=== PATIENT | male | born 1950 | race Caucasian/White ===

== ENCOUNTER → 2016-08-21 | Outpatient (CLI) | payer OTHER ==
[~2016-08-21] MED LIST: ALTACE 10MG TAB10 MG PO; ALTACE10 MG PO; AMIPRIL; ASPIRIN 81M81 MG/TA2 PO; ASPRIN; CEPHALEXIN500 M1 PO; COREG12.5 MG PO; COREG25 MG PO; COUMADIN3 MG PO; DEMADEX 20MG20 MG PO; DEMADEX20 MG PO; DIOVAN 40MG40 MG PO; DUO-KAPS1 CAP PO; FE-TABS325 MG PO; FOLIC ACID 40400 MCG PO; GLUCOSAMINE COM1 TA1 PO; HYDROCODONE/IBU1 TA1 PO; LEVAQUIN 5500 MG/TA1 PO; LORTAB 5/500 501 TAB PO; MUCINEX DM 30 M1 TE1 PO; NAPROSYN250 MG PO; NASONEX SPRAY17 GM NS; OMEGA-3 FISH1200 MG PO; RHINOCORT AQUA8.6 GM NS; RHINOCORT0.032 MG/2 NS; SIMCOR 1000 MG-1 TE1 PO; THERAGRAN1 TA1 PO; VALTREX1 GM PO; VITAMIN C PO; VITAMIN D2000 I1 PO; XYAL5 MG PO; XYZAL5 MG PO; [UNRECOGNIZED DRUG - OTHER] TOP
[2016-08-21 10:29] LABS: HEMOGLOBIN 13.1 g/dl (13.5-18.0); MEAN CELL VOLUME 88 fl (80.0-100.0); MEAN CORPUSCULAR HEMOGLOBIN 30 pg (27.0-31.0); MEAN CORPUSCULAR HGB CONC 34 g/dl (33.0-37.0); MEAN PLATELET VOLUME 11.5 fl (7.4-10.4); PLATELET COUNT 103 K/mm3 (130-400); RED BLOOD COUNT 4.41 M/mm3 (4.20-5.60); REDCELL DISTRIBUTION WIDTH-CV 13.4 % (11.5-14.5); WHITE BLOOD COUNT 2.1 K/mm3 (4.8-10.8)
[2016-08-21 11:10] LABS: ERYTHROCYTE SEDIMENTATION RATE 76 mm/hr (0-30)
== END ==
LOC: COL.LAB 09:12
PROVIDERS: Orthopaedic Surgery
DX: M25.561 Pain in right knee (principal)

== ENCOUNTER → 2017-01-22 | Outpatient (CLI) | payer OTHER | LOC: COL.RAD 13:07 | DX: M18.11 Unilateral primary osteoarthritis of first carpometacarpal joint, right hand (principal); S96.811A Strain of other specified muscles and tendons at ankle and foot level, right foot, initial encounter; X58.XXXA Exposure to other specified factors, initial encounter; M47.817 Spondylosis without myelopathy or radiculopathy, lumbosacral region; M48.07 Spinal stenosis, lumbosacral region | CPT/HCPCS: J3301; Q9967 ==

== ENCOUNTER → 2017-06-29 | Outpatient (CLI) | payer OTHER | LOC: COL.RAD 09:20 | DX: D61.818 Other pancytopenia (principal) ==

== ENCOUNTER → 2017-09-14 | Outpatient (CLI) | payer OTHER | LOC: COL.RAD 09-09 10:30 | DX: M47.817 Spondylosis without myelopathy or radiculopathy, lumbosacral region (principal); M48.07 Spinal stenosis, lumbosacral region; M99.83 Other biomechanical lesions of lumbar region ==

== ENCOUNTER → 2017-10-20 | Outpatient (CLI) | payer OTHER | LOC: COL.RAD 10:00 | DX: N50.89 Other specified disorders of the male genital organs (principal); N43.2 Other hydrocele ==

== ENCOUNTER → 2019-02-27 | Outpatient (CLI) | payer MEDICARE | LOC: COL.PUL 09:49 | DX: R05 Cough (principal); R06.02 Shortness of breath ==

== ENCOUNTER 2019-03-09 12:37 | Emergency (ER) | payer MEDICARE ==
[~2019-03-09] VITALS: Ht 190.5 cm; Wt 155.9 kg
[2019-03-09 12:41] VITALS: TEMP 97.7
[2019-03-09] MEDS ORDERED: VOLTAREN GEL 1%1 TU TOP (12:54)
[2019-03-09] MEDS ORDERED: NORVASC 5MG5 MG/TAB PO (12:56)
[2019-03-09] MEDS ORDERED: COZAAR100 MG PO (12:57)
[2019-03-09] MEDS ORDERED: COREG 25MG25 MG/TAB PO (12:57)
[2019-03-09] MEDS ORDERED: PREDNISONE10 MG PO (13:08)
[2019-03-09] MEDS ORDERED: ZOVIRAX800 MG PO (13:08)
[2019-03-09 13:36] VITALS: BP 121/70; PULSE 51
== END 2019-03-09 13:35 | disposition home or self-care (01) ==
LOC: COL.ER 12:37
DX: G51.0 Bell's palsy (principal); I10 Essential (primary) hypertension; Z79.82 Long term (current) use of aspirin

== ENCOUNTER → 2019-03-27 | Outpatient (CLI) | payer MEDICARE ==
[~2019-03-27] MED LIST changes: +COREG 25MG25 MG/TAB PO; +COZAAR100 MG PO; +NORVASC 5MG5 MG/TAB PO; +PREDNISONE10 MG PO; +VOLTAREN GEL 1%1 TU TOP; +ZOVIRAX800 MG PO
[2019-03-27 10:40] LABS: HEMOGLOBIN 12.8 g/dl (13.5-18.0); MEAN CELL VOLUME 91 fl (80.0-100.0); MEAN CORPUSCULAR HEMOGLOBIN 31 pg (27.0-31.0); MEAN CORPUSCULAR HGB CONC 34 g/dl (33.0-37.0); MEAN PLATELET VOLUME 11.1 fl (7.4-10.4); PLATELET COUNT 102 K/mm3 (130-400); REDCELL DISTRIBUTION WIDTH-CV 13.6 % (11.5-14.5)
[2019-03-27 11:09] LABS: ERYTHROCYTE SEDIMENTATION RATE 98 mm/hr (0-30)
== END ==
LOC: COL.LAB 10:13
PROVIDERS: Orthopaedic Surgery
DX: M25.561 Pain in right knee (principal)

== ENCOUNTER → 2019-04-06 | Outpatient (CLI) | payer MEDICARE ==
[2019-04-06 16:50] LABS: HEMATOCRIT 39.2 % (42.0-52.0); MEAN CELL VOLUME 91 fl (80.0-100.0); MEAN CORPUSCULAR HEMOGLOBIN 30 pg (27.0-31.0); MEAN CORPUSCULAR HGB CONC 33 g/dl (33.0-37.0); MEAN PLATELET VOLUME 11.3 fl (7.4-10.4); PLATELET COUNT 118 K/mm3 (130-400); RED BLOOD COUNT 4.31 M/mm3 (4.20-5.60); REDCELL DISTRIBUTION WIDTH-CV 13.6 % (11.5-14.5)
[2019-04-06 17:13] LABS: ERYTHROCYTE SEDIMENTATION RATE 115 mm/hr (0-30)
== END ==
LOC: COL.LAB 15:59
PROVIDERS: Orthopaedic Surgery
DX: Z47.1 Aftercare following joint replacement surgery (principal); Z96.651 Presence of right artificial knee joint

== ENCOUNTER → 2019-04-10 | Outpatient (CLI) | payer MEDICARE | LOC: COL.LAB 16:21 | DX: R70.0 Elevated erythrocyte sedimentation rate (principal) ==

== ENCOUNTER → 2019-11-01 | Outpatient (CLI) | payer MEDICARE | LOC: COL.RAD 11:09 | DX: D47.2 Monoclonal gammopathy (principal); Z96.651 Presence of right artificial knee joint; Z96.82 Presence of neurostimulator ==

== ENCOUNTER → 2019-11-10 | Outpatient (CLI) | payer MEDICARE | LOC: MC.RAD 08:50 | DX: N64.89 Other specified disorders of breast (principal) | CPT/HCPCS: G0279 ==

== ENCOUNTER → 2020-05-13 | Outpatient (CLI) | payer MEDICARE | LOC: MC.RAD 08:23 | DX: N63.10 Unspecified lump in the right breast, unspecified quadrant (principal) ==

== ENCOUNTER 2021-12-16 07:36 | Emergency (ER) | payer MEDICARE ==
[~2021-12-16] VITALS: Ht 188 cm; Wt 159.1 kg
[2021-12-16 07:48] VITALS: BP 125/83; TEMP 98.9
[2021-12-16] MEDS ORDERED: PERCOCET 325 MG1 TA2 PO (09:35)
[2021-12-16 10:19] VITALS: PULSE 70
== END 2021-12-16 09:56 | disposition home or self-care (01) ==
LOC: COL.ER 07:36
DX: S83.91XA Sprain of unspecified site of right knee, initial encounter (principal); Z96.651 Presence of right artificial knee joint; W01.0XXA Fall on same level from slipping, tripping and stumbling without subsequent striking against object, initial encounter; Y92.002 Bathroom of unspecified non-institutional (private) residence as the place of occurrence of the external cause
CPT/HCPCS: J2270

== ENCOUNTER → 2021-12-17 | Outpatient (CLI) | payer MEDICARE ==
[~2021-12-17] MED LIST changes: +PERCOCET 325 MG1 TA2 PO
== END ==
LOC: COL.RAD 12:21
DX: M25.461 Effusion, right knee (principal); R60.0 Localized edema; M25.561 Pain in right knee

== ENCOUNTER → 2024-03-28 | Outpatient (CLI) | payer MEDICARE ==
[~2024-03-28] MED LIST changes: +NORCO 325 MG-51 TAB PO
== END ==
LOC: COL.VAS 09:31
DX: I11.9 Hypertensive heart disease without heart failure (principal); I34.0 Nonrheumatic mitral (valve) insufficiency; R63.5 Abnormal weight gain